=== PATIENT | female | born 1965 | race Caucasian/White ===

== ENCOUNTER 2016-09-19 13:43 | Emergency (ER) | payer OTHER ==
[2016-09-19 14:00] VITALS: TEMP 97.9
[2016-09-19 14:11] LABS: % IMMATURE GRANULYOCYTES 0.1 % (0.0-1.1); ABSOLUTE IMMATURE GRANULOCYTES 0.01 10^3/uL (0.00-0.10); ADD DIFF? NO; ADD MORPH? NO; ADD SCAN? NO; ATYPICAL LYMPHOCYTE FLAG 0 (0-99); FRAGMENT RBC FLAG 0 (0-99); HEMATOCRIT 41.7 % (38.0-47.0); HEMOGLOBIN 14.6 g/dL (12.6-16.3); LEFT SHIFT FLG 0 (0-99); LIPEMIA HEMOLYSIS FLAG 90 (0-99); MEAN CELL HEMOGLOBIN 32.4 pg (27.9-34.1); MEAN CELL VOLUME 92.7 fL (81.5-99.8); MEAN PLATELET VOLUME 10.7 fL (8.7-11.7); PLATELET CLUMPS FLAG 0 (0-99); PLATELET COUNT 245 10^3/uL (150-400); RED CELL DISTRIBUTION WIDTH 12.7 % (11.5-15.2)
[2016-09-19 14:23] LABS: CALCIUM 9.3 mg/dL (8.5-10.4); CREATININE 1.1 mg/dL (0.6-1.0); POTASSIUM 3.6 mEq/L (3.5-5.2)
[2016-09-19] MEDS ORDERED: ASPIRIN 81 MG CHEWABLE TAB PO ONE (15:11)
--- NOTE | 2016-09-19 15:16 | UCPHY ---
H & P Patient Type: Established Chief Complaint Nursing Narrative: fluttering in chest x 1 week, worse since last night. denies cp Time Seen by Provider: 09/19/16 14:57 HPI/ROS: Complains of heart palpitations. She explains that she has occasionally had feeling of an extra beat or a fleeting palpitation in the past but over the past week she has had increased frequency of episodes that she describes as a throbbing sensation against her chest wall. She explains that it occurs for 5- 7 seconds at a time and she also notes occasional extra beats. She notes no clear exacerbating or alleviating factors for the symptoms. She does admit increased stress trying to sell her house this week and has had more caffeine than usual. She notes no associated symptoms except occasional nausea. She was awakened by heart palpitations last night. However she notes no difficulty with exertion she goes on a brisk walk to 3 miles a day and has not had any significant cardiac symptoms during the walk. ROS: No fevers or chills. No other constitutional symptoms. HEENT: No recent URI symptoms or other complaints. Pulmonary: No shortness of breath. No coughing. Cardiovascular: No lightheadedness. No lower extremity swelling. No diaphoresis. GI: No vomiting. No belly pain. : No symptoms integumentary: No complaints 10 point ROS is otherwise negative. Source: Patient Exam Limitations: No limitations - Personal History LMP (Females 10-55): Hysterectomy - Medical/Surgical History PMH: History of anxiety and depression. She restarted her Lexapro 3 weeks ago due to the increased stress of selling her home and takes 10 mg a day. Insomnia-she noticed that promethazine and nausea medicine that she was prescribed after surgery makes her sleepy so she has been taking this intermittently at night over the past 2 weeks to help her sleep. Hx Asthma: No Hx Chronic Respiratory Disease: No Hx Diabetes: No Hx Cardiac Disease: No Hx Renal Disease: No Hx Cirrhosis: No Hx Alcoholism: No Hx HIV/AIDS: No Hx Splenectomy or Spleen Trauma: No Other PMH: depression - Family History Significant Family History: No pertinent family hx - Social History Smoking Status: Former smoker Alcohol Use: Rarely (Her last alcoholic beverage was wine 3 weeks ago. She rarely drinks.) Drug Use: None Additional Social History: Increased social stress of trying to sell her home currently. She typically has 1 cup of coffee did a day but has been drinking 3 cups of coffee the last couple days. - Physical Exam Exam: General Appearance: Alert, no distress. Eyes: Pupils equal and round no pallor or injection. ENT, Mouth: Mucous membranes moist. Respiratory: There are no retractions, lungs are clear to auscultation. Cardiovascular: Regular rate and rhythm. No murmur gallop or rub noted. She has symmetric 2+ radialis pulses bilaterally. No lower extremity swelling or tenderness. Gastrointestinal: Abdomen is soft and nontender, no masses, bowel sounds normal. Neurological: Alert with no focal deficits. Skin: Warm and dry, no rashes. Musculoskeletal: Neck is supple nontender. Extremities are symmetrical, full range of motion. Psychiatric: Mood and affect normal. DIFFERENTIAL DIAGNOSIS: After history and physical exam differential diagnosis was considered for PACs, PVCs, paroxysmal atrial fibrillation, anxiety, metabolic abnormalities, thyroid disease Constitutional: Initial Vital Signs Temperature (C) 36.6 C 09/19/16 13:58 Heart Rate 78 09/19/16 13:58 Respiratory Rate 16 09/19/16 13:58 Blood Pressure 172/109 H 09/19/16 13:58 O2 Sat (%) 97 09/19/16 13:58 O2 Delivery Mode Room Air Allergies/Adverse Reactions: No Known Allergies Allergy (Verified 01/21/14 07:23) Home Medications: Medication Instructions Recorded Lexapro 09/19/16 Medical Decision Making - Diagnostics EKG Interpretation: 12 lead EKG performed shortly after arrival at 1:54 p.m. reveals sinus rhythm at 79 Intervals: Normal throughout [place]: Normal throughout ST segments: Normal throughout Overall assessment normal EKG Review of library monitor reveals occasional PACs ED Course/Re-evaluation: IV, patient placed on monitor with occasional PVCs. She is otherwise stable with no complaints while here. She is treated with aspirin awaiting her lab results. Other than occasional PACs, no significant dysrhythmia while on the monitor here. We counseled regarding this. While her TSH was a bit elevated her free T3 and T4 normal. Troponin is normal, chemistries and CBC normal. Patient will follow up with Cardiology for further evaluation for any ongoing palpitations. Encouraged her to diminish her caffeine intake and increase her fluid intake. - Data Points Laboratory Results: Laboratory Results 09/19/16 14:08 09/19/16 14:08 09/19/16 09/19/16 09/19/16 Unknown 14:40 14:08 WBC RBC Hgb Hct MCV MCH MCHC RDW Plt Count MPV Neut % (Auto) Lymph % (Auto) [place] % (Auto) Eos % (Auto) Baso % (Auto) Nucleat RBC Rel Count Absolute Neuts (auto) Absolute Lymphs (auto) Absolute Monos (auto) Absolute Eos (auto) Absolute Basos (auto) Absolute Nucleated RBC Immature Gran % Immature Gran # Sodium 141 mEq/L mEq/L (134-144) Potassium 3.6 mEq/L mEq/L (3.5-5.2) Chloride 104 mEq/L mEq/L (97-110) Carbon Dioxide 24 mEq/l mEq/l (22-31) Anion Gap 13 mEq/L mEq/L (8-16) BUN 16 mg/dL mg/dL (7-23) Creatinine 1.1 mg/dL H mg/dL (0.6-1.0) Estimated GFR 52 Glucose 127 mg/dL H mg/dL (70-100) Calcium 9.3 mg/dL mg/dL (8.5-10.4) Troponin I < 0.012 ng/mL ng/mL (0-0.034) TSH 5.360 uIU/mL H uIU/mL (0.465-4.680) Free T4 0.86 ng/dL ng/dL (0.59-2.19) Free T3 3.50 pg/mL pg/mL (2.77-5.27) 09/19/16 14:08 WBC 6.99 10^3/uL 10^3/uL (3.80-9.50) RBC 4.50 10^6/uL 10^6/uL (4.18-5.33) Hgb 14.6 g/dL g/dL (12.6-16.3) Hct 41.7 % % (38.0-47.0) MCV 92.7 fL fL (81.5-99.8) MCH 32.4 pg pg (27.9-34.1) MCHC 35.0 g/dL g/dL (32.4-36.7) RDW 12.7 % % (11.5-15.2) Plt Count 245 10^3/uL 10^3/uL (150-400) MPV 10.7 fL fL (8.7-11.7) Neut % (Auto) 52.8 % % (39.3-74.2) Lymph % (Auto) 38.5 % % (15.0-45.0) [place] % (Auto) 6.3 % % (4.5-13.0) Eos % (Auto) 1.6 % % (0.6-7.6) Baso % (Auto) 0.7 % % (0.3-1.7) Nucleat RBC Rel Count 0.0 % % (0.0-0.2) Absolute Neuts (auto) 3.69 10^3/uL 10^3/uL (1.70-6.50) Absolute Lymphs (auto) 2.69 10^3/uL 10^3/uL (1.00-3.00) Absolute Monos (auto) 0.44 10^3/uL 10^3/uL (0.30-0.80) Absolute Eos (auto) 0.11 10^3/uL 10^3/uL (0.03-0.40) Absolute Basos (auto) 0.05 10^3/uL 10^3/uL (0.02-0.10) Absolute Nucleated RBC 0.00 10^3/uL 10^3/uL (0-0.01) Immature Gran % 0.1 % % (0.0-1.1) Immature Gran # 0.01 10^3/uL 10^3/uL (0.00-0.10) Sodium Potassium Chloride Carbon Dioxide Anion Gap BUN Creatinine Estimated GFR Glucose Calcium Troponin I TSH Free T4 Free T3 Medications Given: Discontinued Medications Aspirin (Aspirin) 324 mg PO EDNOW ONE Stop: 09/19/16 15:12 Last Admin: 09/19/16 15:39 Dose: 324 mg Departure - Departure Disposition: Home, Routine, Self-Care Clinical Impression: Heart palpitations, Premature atrial contractions Condition: Good Instructions: Palpitations (ED) Additional Instructions: Diagnosis: Heart palpitations 2. Premature atrial contractions Plan: Drink plenty of fluids Take a baby aspirin a day Decrease your caffeine intake continue daily exercise Daily relaxation such as hop after 20 minutes or more Contact Dr[address] Leonard-steam pipe fitter arrange follow-up appointment within the next week for further evaluation of your symptoms. Go to the emergency department for any significant worsening despite the treatment plan. Referrals: Елена Laguna MD [Primary Care Provider] - As per Instructions Aldo Leonard MD [Medical Doctor] - As per Instructions - PQRS PQRS Measurement: NA
[2016-09-19 15:21] LABS: TROPONIN I < 0.012 ng/mL (0-0.034)
[2016-09-19 16:16] VITALS: BP 160/104; PULSE 68; RESP 19; O2SAT 95
--- NOTE | 2016-09-20 09:24 | CPEKG ---
Heart Rate: 79 RR Interval: 759 P-R Interval: 144 QRSD Interval: 86 QT Interval: 388 QTC Interval: 445 P [place]: 49 QRS [place]: 15 T Wave [place]: 54 EKG Severity - NORMAL ECG - EKG Impression: SINUS RHYTHM Electronically Signed By: Donte Taylor 19-Sep-2016 15:23:14
== END 2016-09-19 16:13 | disposition home or self-care (01) ==
LOC: CED 13:43
DX: R00.2 Palpitations (principal); I49.1 Atrial premature depolarization; F41.9 Anxiety disorder, unspecified; F32.9 Major depressive disorder, single episode, unspecified
CPT/HCPCS: 80048-PO; 84439-PO; 84443-PO; 84481-PO; 84484-PO; 85025-PO; 93010-PO; 99215-PO; G0463-PO

== ENCOUNTER → 2017-08-27 | Outpatient (CLI) | payer OTHER | LOC: FIMAGING 16:00 | PROVIDERS: ATTEND Internal Medicine | DX: Z12.31 Encounter for screening mammogram for malignant neoplasm of breast (principal); Z80.3 Family history of malignant neoplasm of breast ==

== ENCOUNTER → 2018-05-06 | Outpatient (CLI) | payer OTHER | LOC: CIMAGING 08:17 | PROVIDERS: ATTEND Internal Medicine | DX: R10.9 Unspecified abdominal pain (principal); R14.0 Abdominal distension (gaseous); Z90.710 Acquired absence of both cervix and uterus | CPT/HCPCS: 76856-PO ==

== ENCOUNTER → 2018-07-11 | Outpatient (CLI) | payer OTHER | LOC: FIMAGING 10:58 | PROVIDERS: ATTEND Orthopaedic Surgery Orthopaedic Surgery of the Spine | DX: M51.36 Other intervertebral disc degeneration, lumbar region (principal) ==

== ENCOUNTER 2018-07-13 12:07 | Day surgery (SDC) | payer OTHER ==
[2018-07-13] MEDS ORDERED: LIDOCAINE 1% 2 ML INJ ID PRN (12:19)
[2018-07-13] MEDS ORDERED: LR 1,000 ML IV ONE (12:19)
[2018-07-13] MEDS ORDERED: ceFAZolin 2 GM/DEXTROSE 100 ML IV ONE (12:55)
[2018-07-13] MEDS ORDERED: MIDAZOLAM 2 MG/2 ML VIAL IVP ONE (13:12)
--- NOTE | 2018-07-13 13:12 | PDANEPAE ---
ANE History of Present Illness left foot hardware removal ANE Past Medical History - Cardiovascular History Hx Hypertension: No Hx Arrhythmias: No Hx Chest Pain: No Hx Coronary Artery / Peripheral Vascular Disease: No Hx CHF / Valvular Disease: No Hx Palpitations: No Cardiovascular History Comment: PVCs IN PAST - WAS ON METOPROLOL BUT HAS TAPERED OFF RECENTLY - Pulmonary History Hx COPD: No Hx Asthma/Reactive Airway Disease: No Hx Recent Upper Respiratory Infection: No Hx Oxygen in Use at Home: No Hx Sleep Apnea: No Sleep Apnea Screening Result - Last Documented: Negative Pulmonary History Comment: POS SLEEP APNEA - DOES NOT USE CPAP - Neurologic History Hx Cerebrovascular Accident: No Hx Seizures: No Hx Dementia: No - Endocrine History Hx Diabetes: No Obesity: mild - Renal History Hx Renal Disorders: No - Liver History Hx Hepatic Disorders: No - Neurological & Psychiatric Hx Hx Neurological and Psychiatric Disorders: Yes Neurological / Psychiatric History Comment: ANXIETY & DEPRESSION - Cancer History Hx Cancer: No - Congenital Disorder History Hx Congenital Disorders: No - GI History Hx Gastrointestinal Disorders: Yes Gastrointestinal History Comment: DIVERTICULOSIS. REFLUX - Other Health History Other Health History: NEG - Chronic Pain History Chronic Pain: No - Surgical History Prior Surgeries: CYSTOCELE 12/2017. L FOOT BUNIONECTOMY. UTERINE ABLATION. HYSTERECTOMY. LEFT ACL REPAIR 2013 ANE Review of Systems Review of Systems: - Exercise capacity METS (RN): 4 METS ANE Patient History - Allergies Allergies/Adverse Reactions: No Known Allergies Allergy (Verified 01/21/14 07:23) - Home Medications Home medications: home medication list seen and reviewed Home Medications: Aciphex PRN 07/12/18 [Last Taken 07/09/18] Herbals/Supplements -Info Only 07/12/18 [Last Taken 07/12/18] - NPO status NPO Since - Liquids (Date): 07/13/18 NPO Since - Liquids (Time): 11:00 NPO Since - Solids (Date): 07/12/18 NPO Since - Solids (Time): 18:00 - Anes Hx Anes Hx: no prior problems - Smoking Hx Smoking Status: Former smoker - Family Anes Hx Family Hx Anesthesia Complications: NEG ANE Labs/Vital Signs - Vital Signs Blood Pressure: 154/88 Heart Rate: 61 Respiratory Rate: 21 O2 Sat (%): 94 Height: 165.1 cm Weight: 90.718 kg ANE Physical Exam - Airway Neck exam: FROM Mallampati Score: Class 2 Mouth exam: normal dental/mouth exam - Pulmonary Pulmonary: no respiratory distress - Cardiovascular Cardiovascular: regular rate and rhythym - ASA Status ASA Status: II ANE Anesthesia Plan Anesthesia Plan: GA with mask
[2018-07-13] MEDS ORDERED: PROPOFOL/EMULSION 500 MG/50 ML BOTTLE IV ONE (13:16)
[2018-07-13] MEDS ORDERED: fentaNYL 100 MCG/2 ML INJ ONE (13:16)
[2018-07-13] MEDS ORDERED: LIDOCAINE 2% 5 ML SDV ONE (13:18)
[2018-07-13] MEDS ORDERED: LIDOCAINE 1% 300 MG/30 ML SDV ONE (13:29)
[2018-07-13] MEDS ORDERED: ROPIVACAINE HCL 150 MG/30 ML INJ ONE (13:30)
[2018-07-13] MEDS ORDERED: BACITRACIN 50,000 UNITS/10 ML SYR IRR ONE (13:30)
[2018-07-13] MEDS ORDERED: BUPIVACAINE 0.5% 30 ML SDV ONE (13:30)
--- NOTE | 2018-07-13 13:50 | PDHPUP ---
History & Physical Update H&P update statement: This history and physical update is based on an assessment of the patient which was completed after admission or registration (within 24 hours), but prior to the surgery/procedure. H&P update: H&P reviewed & patient examined (no changes in the health), no change in patient's condition since H&P completed
--- NOTE | 2018-07-13 14:13 | POSTANESTH ---
Post Anesthetic Evaluation Cardiovascular Status: Normal, Stable Respiratory Status: Normal, Stable Level of Consciousness/Mental Status: Can Participate in Eval, Alert and Oriented Pain Control: Adequate, Prn Tx Ordered Nausea/Vomiting Control: Adequate, Prn Tx Ordered Complications Possibly Related to Anesthesia: None Noted
[2018-07-13] MEDS ORDERED: fentaNYL 100 MCG/2 ML INJ IVP PRN (14:41)
[2018-07-13] MEDS ORDERED: HYDROCODONE/APAP 5/325 TAB PO PRN (14:41)
[2018-07-13] MEDS ORDERED: ACETAMINOPHEN 500 MG TAB PO PRN (14:41)
[2018-07-13] MEDS ORDERED: HYDROmorphONE/DILAUDID 2 MG/ML INJ IVP PRN (14:41)
[2018-07-13] MEDS ORDERED: LR 500 ML IV PRN (14:41)
[2018-07-13] MEDS ORDERED: NALOXONE HCL 0.4 MG/ML INJ IVP PRN (14:41)
[2018-07-13] MEDS ORDERED: oxyCODONE IR 5 MG TAB PO PRN (14:41)
[2018-07-13] MEDS ORDERED: ONDANSETRON 4 MG/2 ML VIAL IVP PRN (14:41)
[2018-07-13] MEDS ORDERED: ALBUTEROL 3 ML DEYVIAL IH PRN (14:41)
[2018-07-13] MEDS ORDERED: KETOROLAC 30 MG/1 ML SDV ONE (14:42)
[2018-07-13] MEDS ORDERED: PROPOFOL 200 MG/20 ML VIAL ONE ×2 (15:02)
[2018-07-13] MEDS ORDERED: ONDANSETRON DISINTEGRATING 4 MG TAB PO PRN (16:03)
--- NOTE | 2018-07-13 16:03 | POSTOPPROG ---
Post Op Note Date of Operation: 07/13/18 Surgeon: Margo Webber Anesthesiologist: Jona Murphy Pre-op Diagnosis: painful internal fixation 1st, 5th MT's,proximal phalanx hallux, left foot Post-op Diagnosis: same Indication: pain, swelling Procedure: Removal of screws x 5 Inf/Abcess present in the surg proc area at time of surgery?: No EBL: Minimal Complications: none
[2018-07-13 17:09] VITALS: BP 138/80
--- NOTE | 2018-07-14 03:58 | GOP ---
DATE OF OPERATION: 07/13/2018 SURGEON: Margo Webber DPM ANESTHESIA: IV sedation with local. ANESTHESIOLOGIST: Jona Murphy M.D. PREOPERATIVE DIAGNOSIS: Painful internal fixation, 1st metatarsal, 5th metatarsal and 1st proximal p halanx, all left foot. POSTOPERATIVE DIAGNOSIS: Painful internal fixation, 1st metatarsal, 5th metatarsal and 1st proximal phalanx, all left foot. PROCEDURE PERFORMED: Removal of 2 screws from 5th metatarsal, 2 screws from the 1st metatarsal, a sc rew from the 1st proximal phalanx, all left foot. FINDINGS: DESCRIPTION OF PROCEDURE: Patient presented to the hospital approximately an hour and a half prior t o foot surgery after having been n.p.o. past midnight. The patient's preoperative history and physic al and all lab studies were reviewed and there were no contraindications to the proposed procedures. Patient was given Ancef 2 g IV 0.5 hour prior to foot surgery. Patient was taken to the OR room and placed on the OR table in a supine position where the appropriat e anesthetic agents were administered. This was supplemented with a local block to the left foot uti lizing a total of 14 mL of 0.5% Naropin with 7 mL of 1% lidocaine plain given in a Moreno block fashion to the base of the 1st and 5th metatarsals. The left lower extremity was then prepped and draped in usual aseptic fashion and covered with a sterile stockinette. A sterile pneumatic ankle tourniquet was applied and padded well underneath with Webril. Utilizing elevation overlying Esmarch bandage, t he left foot was exsanguinated and the tourniquet was inflated to a pressure of 225 mmHg. The foot w as then lowered to the orthopedic table. Attention was 1st directed to the dorsal aspect of the distal shaft region of the 5th metatarsal, whe re an approximate 1-1/2 to 2 cm linear longitudinal incision was made in the same region as the previ ous skin incision. Incision was deepened through subcutaneous tissues to the level of the periosteal tissues, taking care to preserve the neurovascular structures. Any bleeders were clamped and cauter ized again as needed. A periosteal incision was made overlying the region where the screw heads were palpable and the periosteal tissues were reflected off the 2 screws that were identified. Both head less 2.5 Osteo screws were then removed without complications. The surgical site was copiously irrig ated with a sterile saline bacitracin solution. The periosteal tissues were reapproximated with 3-0 Vicryl. The subcutaneous tissues were reapproximated with 4-0 Monocryl. The skin was reapproximated with 4-0 Prolene utilizing interrupted horizontal mattress sutures. Attention was then directed to the dorsal distal aspect of the 1st metatarsal where an approximate 2 cm linear longitudinal incision was made along the same incision line as the previous incision line. The incision was deepened through the subcutaneous tissues to the level of the periosteal tissues, t aking care to preserve neurovascular structures. Any bleeders were clamped and cauterized as needed. The periosteal tissues were reflected off the dorsal ends of the screw heads. The most medial scre w had some elevation beyond the cortical surface. The screwdriver for the Arthrex screw system was p laced inside the cannulated screw and on the initial extraction of the screw, the tip of the screwdri moise broke and remained flush and stuck within the screw. A decision was then made to use the Zakia system to extract the screw. The correct size Zakia extractor was then placed over the 2.5 screw an d twisted counter-clockwise. This screw eventually was extracted and placed on the back table. Atte ntion was then directed to the 2nd screw to the distal 1st metatarsal. This screw had bone covering half of the distal region. Utilizing a curette, the bone was removed so as to expose the entire dist al end of the screw. There was bone within the flutes of the screw and thus the screwdriver to the A rthrex system could not be used. Again, decision was made to use the Zakia system, which was placed over the exposed end of the screw and advanced over the screw in a counter-clockwise fashion and jez ntually the screw was extracted and placed on the back table. The surgical site was copiously irriga robin with sterile saline bacitracin solution. Attention was then directed to the medial aspect of the base of the proximal phalanx of the hallux. An approximate 1 cm incision was made overlying the area of the screw. The incision was deepened thr ough the subcutaneous tissues to the level of the periosteal tissues where the screw was easily ident ified. An incision was made to the periosteal tissues and the periosteal tissues were reflected off the end of the screw. Utilizing the Arthrex screwdriver for a 2.5 headless screw, the screw was extr acted without complications and placed on the back table. The surgical site was copiously irrigated with sterile saline bacitracin solution. Monocryl was utilized to reapproximate the subcutaneous tis sues to this incision site. Attention was redirected to the periosteal tissues to the 1st metatarsal which were reapproximated with 3-0 Vicryl. 4-0 Monocryl was utilized to reapproximate the subcutane ous tissues. It should be mentioned prior to closure of the wound to the 1st ray, the tourniquet was released and there was immediate capillary refill to all digits and hemostasis. The skin was reappr oximated with 4-0 Prolene utilizing interrupted horizontal mattress sutures. A mildly compressive dr y sterile gauze dressing was applied with Xeroform, 4 x 4 gauze, Harsh, and an Bruno bandage. Patient tolerated the procedure and anesthesia well and transferred to recovery room with vital signs stable and vascular status intact to the left lower extremity. In the recovery room, the patient re ceived postoperative oral and written home care instructions. Orders were written for the patient to receive a Cryo Cuff and instructed on its usage. Prescription had been given for Percocet to take p ostoperatively for pain as prescribed and as needed. The patient was dispensed a postoperative shoe to wear at all times when weightbearing. The patient is scheduled for 1st postoperative visit in 3 d ays, but is to call the office earlier if any questions or problems should arise. /[id number]/MODL
== END 2018-07-13 17:09 | disposition home or self-care (01) ==
LOC: FSGY 12:07
PROVIDERS: ATTEND Podiatrist
PROC: 0SPN04Z Removal of Internal Fixation Device from Left Metatarsal-Phalangeal Joint, Open Approach (ICD-10-PCS; principal; 2018-07-13 14:00)
DX: T84.84XA Pain due to internal orthopedic prosthetic devices, implants and grafts, initial encounter (principal); M79.672 Pain in left foot; R60.0 Localized edema
CPT/HCPCS: J0690; J1885; J2250; J2704; J2795; J3010

== ENCOUNTER → 2018-08-30 | Outpatient (CLI) | payer OTHER | LOC: CIMAGING 07:03 | PROVIDERS: ATTEND Internal Medicine | DX: Z12.31 Encounter for screening mammogram for malignant neoplasm of breast (principal); Z80.3 Family history of malignant neoplasm of breast ==